=== PATIENT | male | born 1960 | race Caucasian/White ===

== ENCOUNTER → 2018-01-07 | Outpatient (CLI) | payer OTHER | LOC: RAD 11:49 | DX: J98.4 Other disorders of lung (principal) ==

== ENCOUNTER 2020-07-07 08:50 | Inpatient (IN) | payer OTHER ==
[~2020-07-07] VITALS: Ht 175.3 cm; Wt 95.3 kg
[2020-07-07 08:51] VITALS: BP 164/92
[2020-07-07 09:30] LABS: ABSOLUTE NEUTROPHILS 8.1 thou/uL (1.4-8.2); BASOPHILS 0.7 % (0.0-2.0); EOSINOPHILS 4.5 % (0.0-3.0); HEMATOCRIT 48.4 % (42.0-52.0); HEMOGLOBIN 16.1 gm/dL (14.0-18.0); LYMPHOCYTES 26.5 % (24.0-44.0); MCH 31.3 pg (26.0-34.0); MCHC 33.3 g/dL (28.0-37.0); MCV 94.1 fL (80.0-100.0); MONOCYTES 9.1 % (1.0-8.0); PLATELET COUNT 249 thou/uL (150-400); POLYS 59.2 % (36.0-66.0); RBC 5.14 mil/uL (4.50-6.00); WBC 13.7 thou/uL (4.0-11.0)
[2020-07-07 09:41] LABS: ANION GAP 10 mmol/L (7-16); BUN 17 mg/dL (7-18); CALCIUM 8.1 mg/dL (8.5-10.1); CHLORIDE 105 mmol/L (98-107); CO2 27 mmol/L (21-32); CREATININE 1.3 mg/dL (0.7-1.3); GLUCOSE 268 mg/dL (74-106); SODIUM 142 mmol/L (136-145)
[2020-07-07 09:46] LABS: BE(vivo) -5.1 mmol/L (-2 to +3); HCO3 21.6 mmol/L (22.0-26.0); PCO2 46.1 mmHg (35.0-45.0); PO2 77.1 mmHg (80.0-100.0); pH 7.289 (7.360-7.450); sO2 93.9 % (92.0-98.0)
[2020-07-07 09:50] LABS: TROPONIN-I <0.06 ng/mL (<0.06)
--- NOTE | 2020-07-07 12:33 | EKG ---
[facility] [place] [address] ELECTROCARDIOGRAM REPORT Name: BLAYNE TIPTON Room #: 170-12 ADM IN M.R.#: [id number] Admission: 07/07/20 Attend Phys: Ricardo Thrasher MD Discharge: Date of : 58 Report #: [id number] THIS REPORT FOR: cc: Sebastian Duran James A. DO Lundgren, Craig H. MD 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[employer]: [employer] : 1960 Requested By: Taj Valles Order Number: [id number] MD: Grady Fitzgerald Measurements Intervals [place] Rate: 91 P: 82 AR: 160 QRS: 54 QRSD: 90 T: 85 QT: 338 QTc: 416 Interpretive Statements Sinus rhythm Ventricular premature complex Nonspecific ST segment abnormality Baseline wander in lead(s) V1,V5 Compared to ECG 05/08/2009 03:59:36 Ventricular premature complex(es) now present Poor septal R wave progression is now present Electronically Signed On 07-07-2020 12:33:24 CDT by Grady Fitzgerald [email or web address] <ELECTRONICALLY SIGNED> By: Grady Fitzgerald MD, FACC 07/07/20 1233 2 2 Grady Fitzgerald MD, FAC /EPI
--- NOTE | 2020-07-07 15:28 | NUR ---
PT REQUESTED TO LEAVE. DISCUSSED NEG RESULTS OF THIS DECISION. PRIYANKA HASKINS CALLED DR JAMISON WHO IS AWARE.
[2020-07-07 15:29] VITALS: BP 100/71
== END 2020-07-07 15:29 | disposition left against medical advice (07) | DRG 189 ==
LOC: ER 08:50 → EROBS 10:58
PROVIDERS: Emergency Medicine; ADMIT Internal Medicine; ATTEND Internal Medicine
PROC: 5A09357 Assistance with Respiratory Ventilation, Less than 24 Consecutive Hours, Continuous Positive Airway Pressure (ICD-10-PCS; principal; 2020-07-07)
DX: J96.01 Acute respiratory failure with hypoxia (principal); J45.902 Unspecified asthma with status asthmaticus; J96.02 Acute respiratory failure with hypercapnia; Z20.828 Contact with and (suspected) exposure to other viral communicable diseases